=== PATIENT | male | born 1970 | race Caucasian/White ===

== ENCOUNTER 2017-08-31 09:22 | Emergency (ER) | payer OTHER ==
[2017-08-31 12:40] VITALS: BP 131/78
== END 2017-08-31 14:20 | disposition home or self-care (01) ==
LOC: ED 09:22
DX: S68.110A Complete traumatic metacarpophalangeal amputation of right index finger, initial encounter (principal); X58.XXXA Exposure to other specified factors, initial encounter; Y93.89 Activity, other specified; Y92.89 Other specified places as the place of occurrence of the external cause; Y99.8 Other external cause status
CPT/HCPCS: A4570; J2001; J2270; Q0092; Q0162